=== PATIENT | female | born 1960 | race Hispanic/Latino ===

== ENCOUNTER 2017-04-27 14:34 | Outpatient (CLI) | payer MEDICARE ==
--- NOTE | 2017-04-27 15:46 | Ultrasound Report ---
Bilateral whole breast ultrasound including all 4 quadrants and subareolar regions. History: Chronic bilateral breast pain. The patient has not had a mammogram since 2013. I discussed in detail the importance of having screening mammography and the fact that ultrasound is not a screening tool. I recommended a bilateral mammogram, the patient declined. Sonographic evaluation of both breasts demonstrates no evidence of cystic or solid masses. The study does not exclude malignancy. Impression: No significant findings. BI-RADS code: 0. Recommendation: Bilateral screening mammogram.
== END 2017-04-27 14:35 | disposition home or self-care (01) ==
LOC: SPVWC 14:34
PROVIDERS: ATTEND Family Medicine
DX: N60.11 Diffuse cystic mastopathy of right breast (principal); N60.12 Diffuse cystic mastopathy of left breast; N64.4 Mastodynia